=== PATIENT | female | born 1985 | race Two or more races ===

== ENCOUNTER 2024-04-30 08:29 | Outpatient (RCR) | payer BC, SELFPAY ==
--- NOTE | 2024-04-30 11:05 | CTCCONSULT_ITS ---
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 Patient says she frequently gets iron deficient. She has been feeling very tired and fatigued and her memory los s. Patient also noticed thinning of her hair. Patient have heavy menstruation requiring change of p ads every hour when she has menstruation. Her menstruation last for 3 days. Has not seen a gynecolo gist. She is in a relationship with another woman and do not plan to carry children. But she is con cerned to save her eggs. She is not on any oral contraceptives. She has not used IUD to control her menstruation. She has received iron infusions in the past. PAST MEDICAL HISTORY: No known medical problems other than anemia and iron deficiency ALLERGIES: ?? Allergic to iron dextran MEDICATIONS: FAMILY HISTORY: SOCIAL HISTORY: Working present as a cook. Completed eighth grade do not smoke or use alcohol do not use any drugs [employer] MANAGER HISTORY: Patient is having menstruation.. Menstruation cycles are heavy. REVIEW OF SYSTEMS: Other than once mentioned on the HPI constitutional ECOG 1 with no recent weight l oss. HEENT no headache no dizziness no blurry vision. Respiratory no shortness of breath or cough. Cardiac no palpitation. GI good appetite and normal bowel habit. negative. Musculoskeletal neg ative. Neurologic negative. Skin negative. PHYSICAL EXAMINATION: Alert, awaked. Vitals as per chart reviewed by myself. Pertinent findings on ph ysical exam include Patient is alert oriented x 4 S1-S2 Bilateral good air entry Abdomen soft nontender nondistended No edema noted in the legs or arms VITALS: Date Time LABORATORY DATA: As per chart reviewed by myself. Reviewed CBC and shows anemia. Hemoglobin less than 9 ASSESSMENT AND PLAN: Anemia likely iron deficiency and blood loss anemia Last iron infusion more than to 3 years ago History of iron deficiency secondary to gastric bypass Patient have malabsorption Also have heavy menstruation Will check ferritin iron studies Will order Feraheme Recheck labs in 6 months once patient received first infusion RTC in 6 months Advised to follow-up with a psych social worker to help with her heavy menstrual cycles thank you for having me involved in the management of this this patient. cc: PCP Electronically Signed 04/30/2024 at 11:03 AM Andrea Diaz MD Patient: JOCELYNE LACY : 1985 MR#: [id number] CONSULTATION REPORT Page 3 of 3
== END 2024-05-26 23:59 | disposition home or self-care (01) ==
LOC: SCTC 08:29
PROVIDERS: PCP Internal Medicine; Referring Provider Internal Medicine; Visit Provider Nurse Practitioner Family
DX: D50.9 Iron deficiency anemia, unspecified (principal); N92.0 Excessive and frequent menstruation with regular cycle; Z98.84 Bariatric surgery status
CPT/HCPCS: 99213; G0463

== ENCOUNTER → 2024-04-30 | Outpatient (CLI) | payer BC, SELFPAY ==
[2024-04-30 11:37] LABS: Basophils # (Auto) 0.1 Thou/mm3 (0.0-0.2); Basophils % (Auto) 1 % (0-2.5); Eosinophils # (Auto) 0.2 Thou/mm3 (0.0-0.5); Eosinophils % (Auto) 5 % (0-10); Hematocrit 32.2 % (36.0-46.0); Hemoglobin 10.1 g/dL (12.0-16.0); Immature Granulocytes % (Auto) 0 % (0-0); Immature Granulocytes Auto 0.01 Thou/mm3 (0.00-0.00); Lymphocytes # (Auto) 1.9 Thou/mm3 (1.0-4.8); Lymphocytes % (Auto) 44 % (10-50); Mean Corpuscular HGB Conc 31.4 g/dl (31.0-37.0); Mean Corpuscular Hemoglobin 23.9 pg (25.0-35.0); Mean Corpuscular Volume 76 fL (80-100); Monocytes # (Auto) 0.3 Thou/mm3 (0.0-0.8); Monocytes % (Auto) 7 % (0-12); Neutrophils # (Auto) 1.9 Thou/mm3 (1.8-7.7); Neutrophils % (Auto) 44 % (37-80); Nucleated Red Blood Cell % 0 /100 WBC (0); Platelet Count 247 Thou/mm3 (140-440); RDW Standard Deviation 53.1 fL (36.4-46.3); Red Blood Count 4.22 Miln/mm3 (4.00-5.20); White Blood Count 4.4 Thou/mm3 (3.6-11.0)
[2024-04-30 12:59] LABS: Ferritin < 1 ng/mL (7.3-270.7); Total Iron Binding Capacity 417 mcg/dL (250-425)
[2024-04-30 13:09] LABS: Iron 30 mcg/dL (50-170); Percent Iron Saturation 7 % (20-55); Unsaturated Iron Binding 387 (225-295)
[2024-05-07 22:07] LABS: Albumin 4.1 g/dL (3.8-4.8); Alpha-1-Globulin 0.3 g/dL (0.2-0.3); Alpha-2-Globulin 0.6 g/dL (0.5-0.9); Beta-1-Globulin 0.6 g/dL (0.4-0.6); Beta-2-globulin 0.4 g/dL (0.2-0.5)
== END | disposition home or self-care (01) ==
LOC: SCTO 10:00
PROVIDERS: PCP Internal Medicine; Referring Provider Internal Medicine Hematology & Oncology; Visit Provider Internal Medicine Hematology & Oncology
DX: D50.9 Iron deficiency anemia, unspecified (principal)
CPT/HCPCS: 36415; 82728; 83540; 83550; 84155; 84165; 85025; 86334

== ENCOUNTER → 2024-06-11 | Outpatient (CLI) | payer BC, SELFPAY ==
[2024-06-11 10:29] LABS: Basophils % (Auto) 1 % (0-2.5); Eosinophils # (Auto) 0.2 Thou/mm3 (0.0-0.5); Eosinophils % (Auto) 4 % (0-10); Immature Granulocytes % (Auto) 0 % (0-0); Immature Granulocytes Auto 0.01 Thou/mm3 (0.00-0.00); Lymphocytes # (Auto) 1.8 Thou/mm3 (1.0-4.8); Lymphocytes % (Auto) 33 % (10-50); Mean Corpuscular HGB Conc 32.3 g/dl (31.0-37.0); Mean Corpuscular Hemoglobin 24.6 pg (25.0-35.0); Mean Corpuscular Volume 76 fL (80-100); Monocytes # (Auto) 0.3 Thou/mm3 (0.0-0.8); Monocytes % (Auto) 6 % (0-12); Neutrophils # (Auto) 3.1 Thou/mm3 (1.8-7.7); Neutrophils % (Auto) 57 % (37-80); Nucleated Red Blood Cell % 0 /100 WBC (0); Platelet Count 261 Thou/mm3 (140-440); RDW Standard Deviation 48.5 fL (36.4-46.3); Red Blood Count 4.07 Miln/mm3 (4.00-5.20); White Blood Count 5.4 Thou/mm3 (3.6-11.0)
[2024-06-11 10:43] LABS: Alanine Aminotransferase 13 U/L (10-49); Albumin, Serum 4.3 gm/dL (3.5-5.0); Albumin/Globulin Ratio 1.7 (1.2-2.2); Alkaline Phosphatase 50 U/L (46-116); Anion Gap 8 (7-16); Aspartate Amino Transferase 21 U/L (0-34); BUN/Creatinine Ratio 27 Ratio (12-20); Bilirubin,Total 0.4 mg/dL (0.3-1.2); Blood Urea Nitrogen 16 mg/dL (9-23); Calcium 9.7 mg/dL (8.3-10.6); Calcium (Corrected) 9.7 mg/dL (8.5-10.1); Carbon Dioxide 22.6 mMol/L (20.0-31.0); Chloride 109 mMol/L (98-107); Creatinine (Component) 0.6 mg/dL (0.6-1.3); Globulin 2.5 gm/dL (2.3-3.5); Glucose 98 mg/dL (74-106); Osmolality,Calculated 280 (275-295); Potassium 4.1 mMol/L (3.4-5.1); Sodium 140 mMol/L (136-145); Total Protein 6.8 gm/dL (5.7-8.2); eGFR > 60 See Note
[2024-06-11 11:17] LABS: Ferritin 4 ng/mL (7.3-270.7); Total Iron Binding Capacity 407 mcg/dL (250-425)
[2024-06-11 11:28] LABS: Iron 25 mcg/dL (50-170); Percent Iron Saturation 6 % (20-55); Unsaturated Iron Binding 382 (225-295)
== END | disposition home or self-care (01) ==
LOC: SCTO 09:07
PROVIDERS: PCP Internal Medicine; Referring Provider Internal Medicine Hematology & Oncology; Visit Provider Internal Medicine Hematology & Oncology
DX: D64.9 Anemia, unspecified (principal); D50.9 Iron deficiency anemia, unspecified
CPT/HCPCS: 36415; 80053; 82728; 83540; 83550; 85025

== ENCOUNTER 2024-06-21 12:51 | Outpatient (RCR) | payer BC, SELFPAY | END 2024-06-26 23:59 | disposition home or self-care (01) | LOC: SCTC 12:51 | PROVIDERS: PCP Internal Medicine; Referring Provider Internal Medicine; Visit Provider Internal Medicine Hematology & Oncology | DX: D50.9 Iron deficiency anemia, unspecified (principal); Z98.84 Bariatric surgery status | CPT/HCPCS: 96365; 96375; J2919; J3490; Q0138 ==

== ENCOUNTER → 2024-07-19 | Outpatient (CLI) | payer BC, SELFPAY ==
[2024-07-19 14:53] LABS: Basophils % (Auto) 1 % (0-2.5); Eosinophils # (Auto) 0.1 Thou/mm3 (0.0-0.5); Eosinophils % (Auto) 3 % (0-10); Hematocrit 30.5 % (36.0-46.0); Hemoglobin 10.2 g/dL (12.0-16.0); Immature Granulocytes % (Auto) 0 % (0-0); Immature Granulocytes Auto 0.01 Thou/mm3 (0.00-0.00); Lymphocytes # (Auto) 1.9 Thou/mm3 (1.0-4.8); Lymphocytes % (Auto) 42 % (10-50); Mean Corpuscular HGB Conc 33.4 g/dl (31.0-37.0); Mean Corpuscular Hemoglobin 27.1 pg (25.0-35.0); Mean Corpuscular Volume 81 fL (80-100); Monocytes # (Auto) 0.3 Thou/mm3 (0.0-0.8); Monocytes % (Auto) 6 % (0-12); Neutrophils # (Auto) 2.2 Thou/mm3 (1.8-7.7); Neutrophils % (Auto) 49 % (37-80); Nucleated Red Blood Cell % 0 /100 WBC (0); Platelet Count 210 Thou/mm3 (140-440); RDW Standard Deviation 61.9 fL (36.4-46.3); Red Blood Count 3.76 Miln/mm3 (4.00-5.20); White Blood Count 4.5 Thou/mm3 (3.6-11.0)
[2024-07-19 15:03] LABS: Folate 20.43 ng/mL (>5.38); Vitamin B12 544 pg/mL (211-911)
[2024-07-19 15:06] LABS: Alanine Aminotransferase 20 U/L (10-49); Albumin, Serum 4.4 gm/dL (3.5-5.0); Albumin/Globulin Ratio 2.1 (1.2-2.2); Alkaline Phosphatase 58 U/L (46-116); Anion Gap 8 (7-16); Aspartate Amino Transferase 21 U/L (0-34); BUN/Creatinine Ratio 23 Ratio (12-20); Bilirubin,Total 0.3 mg/dL (0.3-1.2); Blood Urea Nitrogen 14 mg/dL (9-23); Calcium 9.8 mg/dL (8.3-10.6); Calcium (Corrected) 9.8 mg/dL (8.5-10.1); Carbon Dioxide 27.5 mMol/L (20.0-31.0); Chloride 105 mMol/L (98-107); Creatinine (Component) 0.6 mg/dL (0.6-1.3); Globulin 2.1 gm/dL (2.3-3.5); Glucose 92 mg/dL (74-106); Osmolality,Calculated 279 (275-295); Potassium 4.2 mMol/L (3.4-5.1); Sodium 140 mMol/L (136-145); Total Protein 6.5 gm/dL (5.7-8.2); eGFR > 60 See Note
[2024-07-19 15:30] LABS: Ferritin 416 ng/mL (7.3-270.7); Iron 87 mcg/dL (50-170); Percent Iron Saturation 34 % (20-55); Total Iron Binding Capacity 253 mcg/dL (250-425); Unsaturated Iron Binding 166 (225-295)
[2024-07-25 03:03] LABS: Albumin 4.1 g/dL (3.8-4.8); Alpha-1-Globulin 0.2 g/dL (0.2-0.3); Alpha-2-Globulin 0.6 g/dL (0.5-0.9); Beta-1-Globulin 0.4 g/dL (0.4-0.6); Beta-2-globulin 0.4 g/dL (0.2-0.5); Gamma Globulin 0.9 g/dL (0.8-1.7)
[2024-07-25 06:46] LABS: Protein, total, serum 6.6 g/dL (6.1-8.1)
== END | disposition home or self-care (01) ==
LOC: SCTO 13:52
PROVIDERS: PCP Internal Medicine; Referring Provider Internal Medicine Hematology & Oncology; Visit Provider Internal Medicine Hematology & Oncology
DX: D50.9 Iron deficiency anemia, unspecified (principal)
CPT/HCPCS: 36415; 80053; 82607; 82728; 82746; 83540; 83550; 84155; 84165; 85025; 86334

== ENCOUNTER 2024-07-26 14:21 | Outpatient (RCR) | payer BC, SELFPAY | END 2024-07-27 23:59 | disposition home or self-care (01) | LOC: SCTC 14:21 | PROVIDERS: PCP Internal Medicine; Referring Provider Internal Medicine; Visit Provider Nurse Practitioner Family | DX: D50.9 Iron deficiency anemia, unspecified (principal); Z98.84 Bariatric surgery status; N92.0 Excessive and frequent menstruation with regular cycle; Z87.891 Personal history of nicotine dependence | CPT/HCPCS: 96365; 96375; 99212; A4216; J2919; J3490; J7040; J7050; Q0138; G0463 ==

== ENCOUNTER → 2024-08-31 | Outpatient (CLI) | payer BC, SELFPAY ==
--- NOTE | 2024-08-31 15:30 | XR_ITS ---
Examination: CT chest, without intravenous contrast. Sagittal and coronal 2-D reconstructions. Exam date and time: August 31, 2024 1448 hours INDICATIONS: Smoking history 20 years CTDI:vol (mGy) 9.12 DLP: (mGycm) 316 Technique: Multiple 3.0 mm axial sections of the chest to been obtained. Bone and lung density settings are obtained. Sagittal and coronal 2-D reconstructions have been obtained. Low dose protocols were performed. One or more of the following dose reduction techniques were used; automated exposure control, adjustment of the mA and/or KV according to patient size, use of iterative reconstruction technique. Findings: No thoracic aortic aneurysmal dilatation Pulmonary artery segments are not enlarged No paratracheal tracheobronchial or bronchopulmonary adenopathy Tiny calcified granuloma in the left upper lobe No pneumonia pulmonary edema or pleural disease Gastric sutures IMPRESSION: No mediastinal lymphadenopathy No pneumonia, pulmonary edema, pleural disease or pulmonary nodules
== END | disposition home or self-care (01) ==
LOC: CCTX 14:23
PROVIDERS: PCP Internal Medicine; Referring Provider Nurse Practitioner Family; Visit Provider Nurse Practitioner Family
DX: D64.9 Anemia, unspecified (principal); D50.9 Iron deficiency anemia, unspecified
CPT/HCPCS: 71250

== ENCOUNTER → 2024-09-20 | Outpatient (CLI) | payer BC, SELFPAY ==
[2024-09-20 13:15] LABS: Basophils % (Auto) 1 % (0-2.5); Eosinophils # (Auto) 0.1 Thou/mm3 (0.0-0.5); Eosinophils % (Auto) 3 % (0-10); Hematocrit 32.3 % (36.0-46.0); Hemoglobin 11.1 g/dL (12.0-16.0); Immature Granulocytes % (Auto) 0 % (0-0); Immature Granulocytes Auto 0.01 Thou/mm3 (0.00-0.00); Immature Reticulocyte Fraction 4.1 % (3.0-15.9); Lymphocytes # (Auto) 1.7 Thou/mm3 (1.0-4.8); Lymphocytes % (Auto) 35 % (10-50); Mean Corpuscular HGB Conc 34.4 g/dl (31.0-37.0); Mean Corpuscular Hemoglobin 30.5 pg (25.0-35.0); Mean Corpuscular Volume 89 fL (80-100); Monocytes # (Auto) 0.3 Thou/mm3 (0.0-0.8); Monocytes % (Auto) 6 % (0-12); Neutrophils # (Auto) 2.6 Thou/mm3 (1.8-7.7); Neutrophils % (Auto) 55 % (37-80); Nucleated Red Blood Cell % 0 /100 WBC (0); Platelet Count 194 Thou/mm3 (140-440); RDW Standard Deviation 47.4 fL (36.4-46.3); Red Blood Count 3.64 Miln/mm3 (4.00-5.20); Reticulocyte % (Auto) 0.9 % (0.5-1.5); Reticulocyte Absolute Auto 34.2 Biln/L (25.0-75.0); Reticulocyte Hgb Content 32.8 pg (28.0-35.0); White Blood Count 4.8 Thou/mm3 (3.6-11.0)
[2024-09-20 13:36] LABS: Alanine Aminotransferase 17 U/L (10-49); Albumin/Globulin Ratio 1.8 (1.2-2.2); Alkaline Phosphatase 54 U/L (46-116); Anion Gap 8 (7-16); Aspartate Amino Transferase 24 U/L (0-34); BUN/Creatinine Ratio 27 Ratio (12-20); Bilirubin,Total 0.3 mg/dL (0.3-1.2); Blood Urea Nitrogen 16 mg/dL (9-23); Calcium 9.3 mg/dL (8.3-10.6); Calcium (Corrected) 9.3 mg/dL (8.5-10.1); Carbon Dioxide 26.7 mMol/L (20.0-31.0); Chloride 105 mMol/L (98-107); Creatinine (Component) 0.6 mg/dL (0.6-1.3); Folate 22.65 ng/mL (>5.38); Globulin 2.2 gm/dL (2.3-3.5); Glucose 95 mg/dL (74-106); Osmolality,Calculated 280 (275-295); Potassium 4.3 mMol/L (3.4-5.1); Sodium 140 mMol/L (136-145); Total Protein 6.2 gm/dL (5.7-8.2); Vitamin B12 545 pg/mL (211-911); eGFR > 60 See Note
[2024-09-20 13:37] LABS: Ferritin 167 ng/mL (7.3-270.7); Iron 68 mcg/dL (50-170); Percent Iron Saturation 27 % (20-55); Total Iron Binding Capacity 245 mcg/dL (250-425); Unsaturated Iron Binding 177 (225-295)
== END | disposition home or self-care (01) ==
LOC: SCTO 12:31
PROVIDERS: PCP Internal Medicine; Referring Provider Nurse Practitioner Family; Visit Provider Nurse Practitioner Family
DX: D50.9 Iron deficiency anemia, unspecified (principal)
CPT/HCPCS: 36415; 80053; 82607; 82728; 82746; 83540; 83550; 85025; 85046

== ENCOUNTER 2024-10-04 13:16 | Outpatient (RCR) | payer BC, SELFPAY | END 2024-10-24 23:59 | disposition home or self-care (01) | LOC: SCTC 13:16 | PROVIDERS: PCP Internal Medicine; Referring Provider Internal Medicine; Visit Provider Nurse Practitioner Family | DX: D50.9 Iron deficiency anemia, unspecified (principal); Z98.84 Bariatric surgery status; N92.0 Excessive and frequent menstruation with regular cycle; K90.9 Intestinal malabsorption, unspecified | CPT/HCPCS: 96372; 99212; J3420; G0463 ==

== ENCOUNTER 2024-11-29 14:37 | Outpatient (RCR) | payer BC, SELFPAY | END 2024-12-24 23:59 | disposition home or self-care (01) | LOC: SCTC 14:37 | PROVIDERS: PCP Internal Medicine; Referring Provider Internal Medicine; Visit Provider Internal Medicine Hematology & Oncology | DX: D64.9 Anemia, unspecified (principal); Z98.84 Bariatric surgery status | CPT/HCPCS: 96372; J3420 ==

== ENCOUNTER → 2025-04-04 | Outpatient (CLI) | payer BC, SELFPAY ==
[2025-04-04 10:02] LABS: Collection Type, Urine Clean Catch
[2025-04-04 10:26] LABS: Basophils # (Auto) 0.0 Thou/mm3 (0.0-0.2); Basophils % (Auto) 1 % (0-2.5); Eosinophils # (Auto) 0.1 Thou/mm3 (0.0-0.5); Eosinophils % (Auto) 3 % (0-10); Hematocrit 35.5 % (36.0-46.0); Hemoglobin 11.9 g/dL (12.0-16.0); Immature Granulocytes Auto 0.01 Thou/mm3 (0.00-0.00); Immature Reticulocyte Fraction 10.2 % (3.0-15.9); Lymphocytes # (Auto) 1.5 Thou/mm3 (1.0-4.8); Lymphocytes % (Auto) 38 % (10-50); Mean Corpuscular HGB Conc 33.5 g/dl (31.0-37.0); Mean Corpuscular Hemoglobin 30.4 pg (25.0-35.0); Mean Corpuscular Volume 91 fL (80-100); Monocytes # (Auto) 0.3 Thou/mm3 (0.0-0.8); Monocytes % (Auto) 6 % (0-12); Neutrophils # (Auto) 2.0 Thou/mm3 (1.8-7.7); Neutrophils % (Auto) 51 % (37-80); Nucleated Red Blood Cell # 0.00 Thou/mm3 (0.00-0.00); Nucleated Red Blood Cell % 0 /100 WBC (0); Platelet Count 216 Thou/mm3 (140-440); RDW Standard Deviation 45.8 fL (36.4-46.3); Red Blood Count 3.92 Miln/mm3 (4.00-5.20); Reticulocyte % (Auto) 1.0 % (0.5-1.5); Reticulocyte Absolute Auto 37.2 Biln/L (25.0-75.0); Reticulocyte Hgb Content 33.0 pg (28.0-35.0); White Blood Count 3.9 Thou/mm3 (3.6-11.0)
[2025-04-04 10:30] LABS: Bacteria,Urine Rare; Bilirubin,Urine Negative (Negative); Blood,Urine Negative (Negative); Clarity,Urine Clear (Clear/Hazy); Color,Urine Yellow (Lt Yel-Yel); Culture Indicated,Urine Not Indicated; Glucose, Urine Negative (Negative); Ketones,Urine Negative (Negative); Leukocyte Esterase,Urine Positive (Negative); Nitrite,Urine Negative (Negative); PH,Urine 6.5 (5.0-7.0); Protein,Urine Trace (Neg - Trace); RBC,Urine 6 /hpf (0-3); Specific Gravity,Urine 1.028 (1.001-1.035); Squamous Epithelial Cell,Urine 4 /hpf (0-5); Urobilinogen,Urine 2.0 mg/dL (0.0-1.0); WBC,Urine 3 /hpf (0-5)
[2025-04-04 10:44] LABS: Alanine Aminotransferase 17 U/L (10-49); Albumin, Serum 4.3 gm/dL (3.5-5.0); Albumin/Globulin Ratio 1.9 (1.2-2.2); Alkaline Phosphatase 50 U/L (46-116); Anion Gap 10 (7-16); Aspartate Amino Transferase 22 U/L (0-34); BUN/Creatinine Ratio 17 Ratio (12-20); Bilirubin,Total 0.6 mg/dL (0.3-1.2); Blood Urea Nitrogen 10 mg/dL (9-23); Calcium 9.5 mg/dL (8.3-10.6); Calcium (Corrected) 9.5 mg/dL (8.5-10.1); Carbon Dioxide 26.0 mMol/L (20.0-31.0); Cardiac Risk Estimate 2.0 RATIO (3.7-5.6); Chloride 108 mMol/L (98-107); Cholesterol 127 mg/dL (132-200); Creatinine (Component) 0.6 mg/dL (0.6-1.3); Free T4 (Free Thyroxine) 1.28 ng/dL (0.89-1.76); Globulin 2.3 gm/dL (2.3-3.5); Glucose 96 mg/dL (74-106); HDL Cholesterol 64 mg/dL (40-60); LDL Cholesterol,Calculated 50 mg/dL (0-130); Osmolality,Calculated 285 (275-295); Potassium 4.3 mMol/L (3.4-5.1); Sodium 144 mMol/L (136-145); Thyroid Stimulating Hormone 1.13 uIU/mL (0.55-4.78); Total Protein 6.6 gm/dL (5.7-8.2); Triglycerides 66 mg/dL (30-150); eGFR > 60 See Note
[2025-04-04 10:46] LABS: Folate 20.12 ng/mL (>5.38); Vitamin B12 867 pg/mL (211-911)
[2025-04-04 10:59] LABS: Ferritin 141 ng/mL (7.3-270.7); Iron 142 mcg/dL (50-170); Percent Iron Saturation 53 % (20-55); Total Iron Binding Capacity 267 mcg/dL (250-425); Unsaturated Iron Binding 125 (225-295)
[2025-04-04 11:19] LABS: Path Review Blood Smear Sent to Pathologist
== END | disposition home or self-care (01) ==
LOC: COPL 09:29
PROVIDERS: PCP Internal Medicine; Referring Provider Internal Medicine Hematology & Oncology; Visit Provider Nurse Practitioner Family
DX: D50.0 Iron deficiency anemia secondary to blood loss (chronic) (principal); R10.0 Acute abdomen; R49.0 Dysphonia
CPT/HCPCS: 36415; 80053; 80061; 81001; 82607; 82728; 82746; 83540; 83550; 84439; 84443; 85025; 85046

== ENCOUNTER 2025-04-15 13:42 | Outpatient (RCR) | payer BC, SELFPAY | END 2025-04-26 23:59 | disposition home or self-care (01) | LOC: SCTC 13:42 | PROVIDERS: PCP Internal Medicine; Referring Provider Internal Medicine; Visit Provider Nurse Practitioner Family | DX: D50.9 Iron deficiency anemia, unspecified (principal); Z98.84 Bariatric surgery status; Z87.891 Personal history of nicotine dependence | CPT/HCPCS: 99212; G0463 ==